=== PATIENT | female | born 1945 | race American Indian/Alaskan Native ===

== ENCOUNTER 2017-10-19 08:54 | Day surgery (SDC) | payer MEDICARE ==
[2016-12-17 07:18] VITALS: BMI 29.7
--- NOTE | 2017-10-19 11:26 | PCM.SURG1 ---
Surgeon's Initial Post Op Note - Surgeon's Notes Surgeon: Prieto Nino MD Point Of Care Specialist: NONE Type of Anesthesia: Local Pre-Operative Diagnosis: US guided FNA of right thyroid nodule Operative Findings: US showed a complex 1.1 cm right thyroid nodule Post-Operative Diagnosis: right thyroid nodule Operation Performed: US guided FNA Specimen/Specimens Removed: 25 g FNA x 5 passes Estimated Blood Loss: EBL {In ML}: 0 Blood Products Given: N/A Drains Used: No Drains Post-Op Condition: Good Date of Surgery/Procedure: 10/19/17 Time of Surgery/Procedure: 20:00
--- NOTE | 2017-10-19 11:27 | CP.SDSHP ---
Same Day Surgery H & P - History Proposed Procedure: US guided FNA of right thyroid nodule Pre-Op Diagnosis: Right thyroid nodule - Allergies Allergies: Allergies codeine Allergy (Verified 10/14/17 09:05) RASH - Physical Exam Mental Status: Alert & Oriented x3 Neuro: WNL Heart: WNL - Impression Impression: Pt with a 1 cm right thyroid nodule refered for FNA. Plan US guided FNA. Pt. Evaluated Today:Candidate for Anesthesia & Procedure: No - Date & Time Date: 10/19/17 Time: 11:00 Short Stay Discharge - Short Stay Discharge Admitting Diagnosis/Reason for Visit: [facility] [place] 10/19/2017 Disposition: HOME/ ROUTINE
--- NOTE | 2017-10-20 11:36 | US ---
PROCEDURE: Date of Procedure: 10/19/2017 PROCEDURE: 1. Ultrasound guided FNA of right thyroid nodule, CPT 01307 2. Ultrasound guidance for FNA, 74944 Medications: 4cc 1% Lidocaine HISTORY: Enlarged right thyroid nodule. TECHNIQUE: Following informed consent and procedure time-out, a limited ultrasound patient's neck confirmed the presence of a 1.1 cm complex right thyroid nodule which is predominantly solid. After the patient's neck was prepped and draped in the usual sterile fashion, the skin was anesthetized with 1% lidocaine. Ultrasound-guided fine needle aspiration was then performed of the dominant right thyroid nodule. A total of 4 passes were made into the nodule with 25 gauge needle under ultrasound guidance. The FNA specimen was sent for routine pathology. Post biopsy ultrasound showed no hematoma. IMPRESSION: Ultrasound-guided FNA of the dominant right thyroid nodule.
== END 2017-10-19 12:15 | disposition home or self-care (01) ==
LOC: C.SDS 08:54
PROVIDERS: ATTEND Radiology Vascular & Interventional Radiology
DX: E04.2 Nontoxic multinodular goiter (principal)

== ENCOUNTER 2018-03-21 09:22 | Day surgery (SDC) | payer MEDICARE ==
[2016-12-17 07:18] VITALS: BMI 29.7
--- NOTE | 2018-03-21 12:09 | CP.SDSHP ---
Same Day Surgery H & P - History Proposed Procedure: US guided FNA of right thyroid nodule Pre-Op Diagnosis: right thyroid nodule - Allergies Allergies: Allergies codeine Allergy (Intermediate, Verified 03/16/18 10:07) RASH - Physical Exam Vital Signs: Vital Signs 03/21/18 09:37 Temperature 97.8 F Pulse Rate 59 L Respiratory 20 Rate Blood Pressure 136/80 O2 Sat by Pulse 98 Oximetry Mental Status: Alert & Oriented x3 - Impression Impression: Pt with an 11 mm right thyroid nodule. Plan US guided FNA. Pt. Evaluated Today:Candidate for Anesthesia & Procedure: No Short Stay Discharge - Short Stay Discharge Admitting Diagnosis/Reason for Visit: NONTOXIC SINGLE THYROID NODULE Disposition: HOME/ ROUTINE
--- NOTE | 2018-03-21 12:10 | PCM.SURG1 ---
Surgeon's Initial Post Op Note - Surgeon's Notes Surgeon: Prieto Nino MD Cotton Agent: NONE Type of Anesthesia: Local Pre-Operative Diagnosis: right thyroid nodule Operative Findings: 11 mm right thyroid nodule Post-Operative Diagnosis: right thyroid nodule Operation Performed: US guided FNA of right thyroid nodule Specimen/Specimens Removed: 25 g FNA x 5 Estimated Blood Loss: EBL {In ML}: 0 Blood Products Given: N/A Drains Used: No Drains Post-Op Condition: Good Date of Surgery/Procedure: 03/21/18 Time of Surgery/Procedure: 12:00
[2018-03-21 12:29] VITALS: BP 120/70; PULSE 77; RESP 18; TEMP 98; O2SAT 100
--- NOTE | 2018-03-22 10:41 | US ---
PROCEDURE: Date of Procedure: 03/21/2018 PROCEDURE: 1. Ultrasound guided FNA of right thyroid nodule, CPT 40393 2. Ultrasound guidance for FNA, [id number] Medications: 2CC 1% Lidocaine HISTORY: Enlarged right thyroid nodule. TECHNIQUE: Following informed consent and procedure time-out, a limited ultrasound patient's neck confirmed the presence of a 1 cmcomplex right thyroid nodule which is predominantly solid. After the patient's neck was prepped and draped in the usual sterile fashion, the skin was anesthetized with 1% lidocaine. Ultrasound-guided fine needle aspiration was then performed of the dominant right thyroid nodule. A total of 5 passes were made into the nodule with 25 gauge needle under ultrasound guidance. The FNA specimen was sent for routine pathology. Post biopsy ultrasound showed no hematoma. IMPRESSION: Ultrasound-guided FNA of the dominant right thyroid nodule.
== END 2018-03-21 13:01 | disposition home or self-care (01) ==
LOC: C.SPRAD 09:22
PROVIDERS: ATTEND Radiology Vascular & Interventional Radiology
DX: E04.1 Nontoxic single thyroid nodule (principal)

== ENCOUNTER 2018-10-19 11:38 | Outpatient (CLI) | payer MEDICARE | END 2018-10-19 11:39 | disposition home or self-care (01) | LOC: C.RADIC 11:38 | DX: M25.542 Pain in joints of left hand (principal); M25.532 Pain in left wrist ==

== ENCOUNTER 2018-11-22 09:52 | Outpatient (CLI) | payer MEDICARE | END 2018-11-22 09:53 | disposition home or self-care (01) | LOC: C.LAB 09:52 | DX: R76.0 Raised antibody titer (principal); M35.9 Systemic involvement of connective tissue, unspecified ==

== ENCOUNTER 2018-12-01 10:55 | Outpatient (CLI) | payer MEDICARE | END 2018-12-01 10:56 | disposition home or self-care (01) | LOC: C.LAB 10:55 | DX: N30.00 Acute cystitis without hematuria (principal) ==

== ENCOUNTER 2019-01-09 10:22 | Outpatient (CLI) | payer MEDICARE | END 2019-01-09 10:23 | disposition home or self-care (01) | LOC: C.USIC 10:22 | DX: I12.9 Hypertensive chronic kidney disease with stage 1 through stage 4 chronic kidney disease, or unspecified chronic kidney disease (principal) ==

== ENCOUNTER 2019-02-15 11:04 | Outpatient (CLI) | payer MEDICARE | END 2019-02-15 11:05 | disposition home or self-care (01) | LOC: C.LAB 11:04 | DX: I12.9 Hypertensive chronic kidney disease with stage 1 through stage 4 chronic kidney disease, or unspecified chronic kidney disease (principal) ==